=== PATIENT | male | born 1975 | race Two or more races ===

== ENCOUNTER 2017-12-04 21:46 | Inpatient (IN) | payer MEDICAID ==
[~2017-12-04] VITALS: Ht 162.6 cm; Wt 129.1 kg
[~2017-12-04 21:46] MED LIST: AMLO5TAB2 PO; CLON0.2T PO; DENIES HOME MEDS; HYDR25TA4 PO; LOSA50TA6 PO; METF-370 PO; METH-562 PO; PERCOT PO; POTA-165 PO; [UNRECOGNIZED DRUG - CODE] PO
[2017-12-04 22:46] LABS: Basophils # (auto) 0.1 uL; Basophils % (auto) 0.9 % (0.0-2.0); Eosinophils # (auto) 0.4 uL; Eosinophils % (auto) 4.5 % (0.0-7.0); Hematocrit 40.7 % (41.0-53.0); Hemoglobin 14.1 g/dL (13.5-17.5); Lymphocytes # (auto) 2.5 uL; Lymphocytes % (auto) 29.4 % (10.0-50.0); Mean Corpuscular Hemoglobin 29.3 pg (28.0-32.0); Mean Corpuscular Hgb Conc. 34.5 g/dL (32.0-36.0); Mean Corpuscular Volume 84.9 fL (80.0-100.0); Monocytes # (auto) 0.7 uL; Monocytes % (auto) 7.6 % (0.0-12.0); Neutrophils % (auto) 57.6 % (37.0-80.0); Platelet Count (auto) 225 10^3/uL (140-450); Red Blood Cells 4.79 10^6/uL (4.5-5.90); Red Cell Distribution Width 12.6 % (11.8-14.3); White Blood Cell 8.6 10^3/uL (4.4-10.8)
[2017-12-04 23:05] LABS: Albumin 3.5 g/dL (3.4-5.0); BUN/Creatinine Ratio 14.5; Bilirubin, Total 0.4 mg/dL (0.2-1.0); Calcium 8.6 mg/dL (8.5-10.1); Magnesium 2.2 mg/dL (1.6-2.6); Potassium 3.7 mmol/L (3.5-5.1); Total Protein 7.5 g/dL (6.4-8.2)
[2017-12-05] MEDS ORDERED: cloNIDine HCL 0.1 MG TAB PO ONE (05:00)
[2017-12-05] MEDS ORDERED: NITROGLYCERIN 0.4 MG SL TAB SL ONE (08:15)
[2017-12-05] MEDS ORDERED: LABETALOL HCL 5 MG/ML ML 20ML VIAL IV ONE (08:15)
[2017-12-05] MEDS ORDERED: ASPirin 325 MG TAB PO ONE (08:15)
[2017-12-05] MEDS ORDERED: ZOLPIDEM TARTRATE 5 MG TAB PO PRN (09:15)
[2017-12-05] MEDS ORDERED: MORPHINE SULF INJ 2 MG/ML SYRINGE 1ML IV PRN ×2 (09:15)
[2017-12-05] MEDS ORDERED: cloNIDine HCL 0.1 MG TAB PO PRN (09:15)
[2017-12-05] MEDS ORDERED: ACETAMINOPHEN 325 MG TAB PO PRN (09:15)
[2017-12-05] MEDS ORDERED: LORazepam 0.5 MG TAB PO PRN (09:15)
[2017-12-05] MEDS ORDERED: ALUM & MAG HYDROX-SIMETH LIQ(MAALOX) 30 ML PO ONE (09:15)
[2017-12-05] MEDS ORDERED: ONDANSETRON HCL 4 MG/2 ML VIAL IV PRN (09:15)
[2017-12-05] MEDS ORDERED: METHOCARBAMOL 500 MG TAB PO PRN (09:15)
[2017-12-05] MEDS ORDERED: NITROGLYCERIN 0.4 MG SL TAB SL PRN ×2 (09:15)
[2017-12-05 09:45] LABS: INR 0.95 (0.9-1.15); Prothrombin Time 10.3 sec (9.37-12.3)
[2017-12-05] MEDS: DOCUSATE SOD 100 MG CAP PO SCH (10:00)
[2017-12-05] MEDS ORDERED: ENALAPRIL MALEATE 2.5 MG TAB PO SCH (10:00)
[2017-12-05] MEDS: LOSARTAN POTASSIUM 50 MG TAB PO SCH (10:16)
[2017-12-05] MEDS: amLODIPine BESYLATE 5 MG TAB PO SCH (10:16)
[2017-12-05] MEDS: fentaNYL 100MCG/HR 100 MCG/HR PAT TD SCH (10:16)
[2017-12-05] MEDS: POTASSIUM CHL 20 Meq TABLET PO SCH (10:16)
[2017-12-05] MEDS: CLOPIDOGREL BISULFATE 75 MG TAB PO SCH (10:16)
[2017-12-05] MEDS: LORATADINE 10 MG TAB PO SCH (10:16)
[2017-12-05] MEDS: CARVEDILOL 3.125 MG TAB PO SCH ×2 (10:16→22:16)
[2017-12-05] MEDS: HCTZ 25 MG TAB PO SCH (10:17)
[2017-12-05 11:31] VITALS: BP 131/86
[2017-12-05 13:00] VITALS: BP 131/68
[2017-12-05] MEDS ORDERED: OPTISON 3ml Vial for INJ IV ONE (13:31)
[2017-12-05] MEDS: SODIUM CHLOR 0.9% PF (SALINE LOCK) 10ML VIAL IV SCH ×2 (15:28→22:15)
[2017-12-05 16:05] LABS: Urine Bacteria NONE SEEN /hpf (None Seen); Urine Blood Negative /uL (Negative); Urine Mucus FEW (None Seen); Urine Specific Gravity 1.018 (1.001-1.035); Urine WBC 8 /hpf (0 - 3)
[2017-12-05 17:00] VITALS: BP 130/81
[2017-12-05 22:00] VITALS: BP 159/90
[2017-12-05] MEDS: cloNIDine HCL 0.1 MG TAB PO SCH (22:15)
[2017-12-05] MEDS: ATORVASTATIN 20 MG TAB PO SCH (22:16)
[2017-12-06 05:00] VITALS: BP 146/69
[2017-12-06] MEDS: SODIUM CHLOR 0.9% PF (SALINE LOCK) 10ML VIAL IV SCH ×3 (05:06→22:11)
[2017-12-06 06:30] LABS: Basophils # (auto) 0 uL; Basophils % (auto) 0.3 % (0.0-2.0); Eosinophils # (auto) 0.4 uL; Hematocrit 38.8 % (41.0-53.0); Hemoglobin 13.6 g/dL (13.5-17.5); Lymphocytes # (auto) 3.2 uL; Lymphocytes % (auto) 36.2 % (10.0-50.0); Mean Corpuscular Hemoglobin 29.7 pg (28.0-32.0); Mean Corpuscular Volume 84.8 fL (80.0-100.0); Monocytes # (auto) 0.6 uL; Monocytes % (auto) 7.1 % (0.0-12.0); Neutrophils # (auto) 4.6 uL; Neutrophils % (auto) 51.4 % (37.0-80.0); Nucleated Red Blood Cells % 0.1 %; Platelet Count (auto) 201 10^3/uL (140-450); Red Blood Cells 4.58 10^6/uL (4.5-5.90); Red Cell Distribution Width 12.9 % (11.8-14.3); White Blood Cell 8.9 10^3/uL (4.4-10.8)
[2017-12-06 07:08] LABS: Albumin 3.3 g/dL (3.4-5.0); BUN/Creatinine Ratio 17.7; Bilirubin, Total 0.5 mg/dL (0.2-1.0); Calcium 8.7 mg/dL (8.5-10.1); Magnesium 2.5 mg/dL (1.6-2.6); Potassium 4.1 mmol/L (3.5-5.1); Total Protein 7.2 g/dL (6.4-8.2)
[2017-12-06] MEDS ORDERED: ADENOSINE 109 MG in GIVE UN-DILUTED 0 ML IV ONE (08:30)
[2017-12-06 09:00] VITALS: BP 126/93
[2017-12-06] MEDS: CARVEDILOL 3.125 MG TAB PO SCH ×2 (10:00→22:12)
[2017-12-06] MEDS: ASPirin 81 mg TAB PO SCH (10:02)
[2017-12-06] MEDS: LORATADINE 10 MG TAB PO SCH (10:02)
[2017-12-06] MEDS: DOCUSATE SOD 100 MG CAP PO SCH (10:02)
[2017-12-06] MEDS: POTASSIUM CHL 20 Meq TABLET PO SCH (10:03)
[2017-12-06] MEDS: LOSARTAN POTASSIUM 50 MG TAB PO SCH (10:03)
[2017-12-06] MEDS: HCTZ 25 MG TAB PO SCH (10:03)
[2017-12-06] MEDS: CLOPIDOGREL BISULFATE 75 MG TAB PO SCH (10:04)
[2017-12-06] MEDS: amLODIPine BESYLATE 5 MG TAB PO SCH (10:04)
[2017-12-06 13:00] VITALS: BP 155/98
[2017-12-06 17:00] VITALS: BP 146/86
[2017-12-06 22:09] VITALS: BP 153/95
[2017-12-06] MEDS: cloNIDine HCL 0.1 MG TAB PO SCH (22:11)
[2017-12-06] MEDS: ATORVASTATIN 20 MG TAB PO SCH (22:12)
[2017-12-07 04:55] VITALS: BP 114/71
[2017-12-07] MEDS: SODIUM CHLOR 0.9% PF (SALINE LOCK) 10ML VIAL IV SCH ×3 (05:39→22:14)
[2017-12-07 07:33] LABS: Basophils # (auto) 0 uL; Basophils % (auto) 0.5 % (0.0-2.0); Eosinophils # (auto) 0.5 uL; Eosinophils % (auto) 5.7 % (0.0-7.0); Hematocrit 39.7 % (41.0-53.0); Hemoglobin 13.8 g/dL (13.5-17.5); Lymphocytes # (auto) 3.2 uL; Lymphocytes % (auto) 37.9 % (10.0-50.0); Mean Corpuscular Hemoglobin 29.5 pg (28.0-32.0); Mean Corpuscular Hgb Conc. 34.8 g/dL (32.0-36.0); Mean Corpuscular Volume 84.6 fL (80.0-100.0); Monocytes # (auto) 0.7 uL; Monocytes % (auto) 7.8 % (0.0-12.0); Neutrophils # (auto) 4.1 uL; Neutrophils % (auto) 48.1 % (37.0-80.0); Nucleated Red Blood Cells % 0.1 %; Platelet Count (auto) 205 10^3/uL (140-450); Red Cell Distribution Width 12.8 % (11.8-14.3); White Blood Cell 8.4 10^3/uL (4.4-10.8)
[2017-12-07 07:36] LABS: INR 0.92 (0.9-1.15); Partial Thromboplastin Time 25.5 sec (22.64-33.71)
[2017-12-07 08:06] LABS: Albumin 3.3 g/dL (3.4-5.0); BUN/Creatinine Ratio 16.1; Bilirubin, Total 0.6 mg/dL (0.2-1.0); Calcium 8.6 mg/dL (8.5-10.1); Potassium 4.1 mmol/L (3.5-5.1); Total Protein 7.2 g/dL (6.4-8.2)
[2017-12-07 09:00] VITALS: BP 134/80
[2017-12-07] MEDS: LOSARTAN POTASSIUM 50 MG TAB PO SCH (10:00)
[2017-12-07] MEDS: LORATADINE 10 MG TAB PO SCH (10:00)
[2017-12-07] MEDS: amLODIPine BESYLATE 5 MG TAB PO SCH (10:00)
[2017-12-07] MEDS: HCTZ 25 MG TAB PO SCH (10:00)
[2017-12-07] MEDS: POTASSIUM CHL 20 Meq TABLET PO SCH (10:00)
[2017-12-07] MEDS: CARVEDILOL 3.125 MG TAB PO SCH ×2 (10:00→22:14)
[2017-12-07] MEDS: DOCUSATE SOD 100 MG CAP PO SCH (10:00)
[2017-12-07] MEDS: ASPirin 81 mg TAB PO SCH (10:00)
[2017-12-07] MEDS: CLOPIDOGREL BISULFATE 75 MG TAB PO SCH (10:00)
[2017-12-07] MEDS ORDERED: ANGIOMAX 250 MG VIAL IV ONE (12:48)
[2017-12-07] MEDS ORDERED: MIDAZOLAM HCL 1MG/1ML-2 ML VIAL ONE (12:49)
[2017-12-07] MEDS ORDERED: fentaNYL CITRATE 100 MCG/2 ML VL ONE (12:49)
[2017-12-07] MEDS ORDERED: IODIXANOL 320MG/ML 100ML BTL IV ONE (12:53)
[2017-12-07] MEDS ORDERED: LIDOCAINE 2%HCL (LOCAL ANESTH.) INJ 20ML MDV ONE (12:53)
[2017-12-07] MEDS ORDERED: VERAPAMIL 2.5MG/ML INJ 2ML VIAL IV ONE (12:55)
[2017-12-07 13:00] VITALS: BP 154/84
[2017-12-07] MEDS ORDERED: HEPARIN SODIUM (PORCINE) 5000 UNITS/ML 1ML VIAL ONE (13:46)
[2017-12-07 22:00] VITALS: BP 143/82
[2017-12-07] MEDS: ATORVASTATIN 20 MG TAB PO SCH (22:14)
[2017-12-07] MEDS: cloNIDine HCL 0.1 MG TAB PO SCH (22:14)
[2017-12-08 05:00] VITALS: BP 140/79
[2017-12-08] MEDS: SODIUM CHLOR 0.9% PF (SALINE LOCK) 10ML VIAL IV SCH ×2 (05:50→14:00)
[2017-12-08 06:17] LABS: BUN/Creatinine Ratio 17.4; Calcium 8.7 mg/dL (8.5-10.1); Potassium 3.8 mmol/L (3.5-5.1)
[2017-12-08 08:54] VITALS: BP 145/64
[2017-12-08] MEDS: CARVEDILOL 3.125 MG TAB PO SCH (10:00)
[2017-12-08] MEDS: fentaNYL 100MCG/HR 100 MCG/HR PAT TD SCH (10:50)
[2017-12-08] MEDS: CLOPIDOGREL BISULFATE 75 MG TAB PO SCH (10:51)
[2017-12-08] MEDS: amLODIPine BESYLATE 5 MG TAB PO SCH (10:51)
[2017-12-08] MEDS: POTASSIUM CHL 20 Meq TABLET PO SCH (10:51)
[2017-12-08] MEDS: ASPirin 81 mg TAB PO SCH (10:51)
[2017-12-08] MEDS: DOCUSATE SOD 100 MG CAP PO SCH (10:51)
[2017-12-08] MEDS: LOSARTAN POTASSIUM 50 MG TAB PO SCH (10:51)
[2017-12-08] MEDS: HCTZ 25 MG TAB PO SCH (10:52)
[2017-12-08] MEDS: LORATADINE 10 MG TAB PO SCH (10:52)
[2017-12-08 11:27] VITALS: BP 123/79
[2017-12-08 14:06] VITALS: BP 145/64
== END 2017-12-08 15:00 | disposition home or self-care (01) | DRG 191 ==
LOC: ER 21:46 → TELE 21:47 → ER 12-05 02:16 → TELE-WESTW 12-05 10:34
PROVIDERS: ADMIT Internal Medicine; ATTEND Internal Medicine
PROC: 4A023N7 Measurement of Cardiac Sampling and Pressure, Left Heart, Percutaneous Approach (ICD-10-PCS; principal; 2017-12-07)
PROC: B2111ZZ Fluoroscopy of Multiple Coronary Arteries using Low Osmolar Contrast (ICD-10-PCS; 2017-12-07)
DX: I20.0 Unstable angina (principal); E11.22 Type 2 diabetes mellitus with diabetic chronic kidney disease; E11.65 Type 2 diabetes mellitus with hyperglycemia; E44.1 Mild protein-calorie malnutrition; E66.01 Morbid (severe) obesity due to excess calories; G47.30 Sleep apnea, unspecified; N18.2 Chronic kidney disease, stage 2 (mild); I12.9 Hypertensive chronic kidney disease with stage 1 through stage 4 chronic kidney disease, or unspecified chronic kidney disease; G89.29 Other chronic pain; J45.909 Unspecified asthma, uncomplicated; Z82.49 Family history of ischemic heart disease and other diseases of the circulatory system; Z83.3 Family history of diabetes mellitus; Z68.42 Body mass index [BMI] 45.0-49.9, adult; Z90.49 Acquired absence of other specified parts of digestive tract
CPT/HCPCS: 36415; 71045; 80048; 80053; 80061; 81001; 83036; 83735; 83880; 84443; 84484; 85025; 85610; 85730; 93005; 93306; 93458; 96374; 99152; J0153; J2250; Q9956; Q9967

== ENCOUNTER 2020-11-10 17:44 | Emergency (ER) | payer MEDICAID ==
[~2020-11-10] VITALS: Ht 167.6 cm; Wt 136.1 kg
[~2020-11-10 17:44] MED LIST changes: +AMLO-489 PO; -AMLO5TAB2 PO; -CLON0.2T PO; -DENIES HOME MEDS; +GLIP10TA9 PO; -LOSA50TA6 PO; -PERCOT PO; +PIOG15TA25 PO; -POTA-165 PO; -[UNRECOGNIZED DRUG - CODE] PO
[2020-11-10 19:08] LABS: Basophils # (auto) 0 10 ^3/uL (0-0.2); Basophils % (auto) 0.1 % (0.0-2.0); Eosinophils # (auto) 0 10 ^3/uL (0-0.8); Hematocrit 39.5 % (41.0-53.0); Hemoglobin 13.7 g/dL (13.5-17.5); Lymphocytes # (auto) 0.7 10 ^3/uL (0.4-5.4); Lymphocytes % (auto) 11.7 % (10.0-50.0); Mean Corpuscular Hemoglobin 29.3 pg (28.0-32.0); Mean Corpuscular Hgb Conc. 34.7 g/dL (32.0-36.0); Mean Corpuscular Volume 84.6 fL (80.0-100.0); Monocytes # (auto) 0.2 10 ^3/uL (0-1.3); Monocytes % (auto) 3.4 % (0.0-12.0); Neutrophils % (auto) 84.8 % (37.0-80.0); Nucleated Red Blood Cells % 0.8 %; Red Blood Cells 4.67 10^6/uL (4.5-5.90); Red Cell Distribution Width 12.7 % (11.8-14.3); White Blood Cell 5.9 10^3/uL (4.4-10.8)
[2020-11-10 19:22] LABS: Albumin 3.1 g/dL (3.4-5.0); Calcium 8.4 mg/dL (8.5-10.1); Magnesium 1.8 mg/dL (1.6-2.6); Potassium 3.8 mmol/L (3.5-5.1)
[2020-11-10 19:31] LABS: BUN/Creatinine Ratio 16.2; Bilirubin, Total 0.6 mg/dL (0.2-1.0); CRP High Sensitivity 7.18 mg/dL (< 0.3); Total Protein 8.2 g/dL (6.4-8.2)
[2020-11-10 21:12] VITALS: BP 137/71
== END 2020-11-10 21:16 | disposition home or self-care (01) ==
LOC: ER 17:45
DX: U07.1 COVID-19 (principal); J12.89 Other viral pneumonia; J45.909 Unspecified asthma, uncomplicated; E11.9 Type 2 diabetes mellitus without complications; I10 Essential (primary) hypertension; F17.200 Nicotine dependence, unspecified, uncomplicated; Z90.49 Acquired absence of other specified parts of digestive tract
CPT/HCPCS: 36415; 71045; 80053; 82728; 83605; 83615; 83735; 84443; 85025; 85379; 86141; 87040; 87426; 93005; 99285; J7030

== ENCOUNTER 2023-03-02 22:16 | Inpatient (IN) | payer MEDICAID ==
[~2023-03-02] VITALS: Ht 167.6 cm; Wt 141.0 kg
[2023-03-02 22:28] LABS: Basophils # (auto) 0.1 10 ^3/uL (0-0.2); Basophils % (auto) 0.7 % (0.0-2.0); Eosinophils # (auto) 0.2 10 ^3/uL (0-0.8); Eosinophils % (auto) 1.8 % (0.0-7.0); Hematocrit 45.2 % (41.0-53.0); Hemoglobin 15.5 g/dL (13.5-17.5); Lymphocytes # (auto) 3.5 10 ^3/uL (0.4-5.4); Lymphocytes % (auto) 27.9 % (10.0-50.0); Mean Corpuscular Hemoglobin 29.1 pg (28.0-32.0); Mean Corpuscular Hgb Conc. 34.3 g/dL (32.0-36.0); Mean Corpuscular Volume 84.7 fL (80.0-100.0); Monocytes % (auto) 8.1 % (0.0-12.0); Neutrophils # (auto) 7.8 10 ^3/uL (1.6-8.6); Neutrophils % (auto) 61.5 % (37.0-80.0); Nucleated Red Blood Cells % 0.1 %; Red Blood Cells 5.34 10^6/uL (4.5-5.90); Red Cell Distribution Width 13.2 % (11.8-14.3); White Blood Cell 12.7 10^3/uL (4.4-10.8)
[2023-03-02] MEDS ORDERED: SODIUM CHLORIDE 0.9% 500 ML IV ONE (22:30)
[2023-03-02 22:41] LABS: INR 0.97 (0.9-1.15); Partial Thromboplastin Time 25.9 sec (24.6-33.4)
[2023-03-02 22:47] LABS: Albumin 3.3 g/dL (3.4-5.0); Calcium 8.9 mg/dL (8.5-10.1); Magnesium 2.1 mg/dL (1.6-2.6); Potassium 3.9 mmol/L (3.5-5.1)
[2023-03-02 22:51] LABS: BUN/Creatinine Ratio 14.4 (10.0-20.0); Bilirubin, Total 0.4 mg/dL (0.2-1.0); Total Protein 7.2 g/dL (6.4-8.2)
[2023-03-02] MEDS ORDERED: dilTIAZem 25 MG/5 ML VIAL IV ONE ×2 (23:15→23:45)
[2023-03-02] MEDS ORDERED: METOPROLOL TARTRATE 1MG/1ML-5ML VIAL IV ONE ×2 (23:22→23:25)
[2023-03-02] MEDS ORDERED: AMIODARONE HCL (50 MG/ ML) 3 ML VIAL IV ONE (23:50)
[2023-03-03] MEDS ORDERED: AMIODARONE HCL 150 MG in D5W 5% 100 ML IV ONE ×2
[2023-03-03] MEDS ORDERED: dilTIAZem 125mg/125ml BAG KIT 125 ML IV ONE ×2 (00:30)
[2023-03-03] MEDS ORDERED: NITROGLYCERIN 0.4 MG SL TAB SL PRN (00:45)
[2023-03-03] MEDS ORDERED: METOPROLOL SUCCINATE XL 50 MG TAB PO ONE (00:45)
[2023-03-03] MEDS ORDERED: MORPHINE SULFATE INJ 2 MG/ml SYRG IV PRN (00:45)
[2023-03-03] MEDS ORDERED: dilTIAZem 25 MG/5 ML VIAL IV ONE ×2 (04:25→04:27)
[2023-03-03] MEDS ORDERED: dilTIAZem 125mg/125ml BAG KIT 125 ML IV SCH (04:45)
[2023-03-03] MEDS: AMIODARONE HCL 200 MG TAB PO SCH ×2 (08:34→22:40)
[2023-03-03] MEDS: METOPROLOL SUCCINATE XL 50 MG TAB PO SCH ×2 (08:34→22:41)
[2023-03-03] MEDS: RIVAROXABAN 20 MG TAB PO SCH (08:35)
[2023-03-03] MEDS ORDERED: DEXTROSE (50%) 50ML SYRG IV PRN (11:00)
[2023-03-03] MEDS: InsuLIN REG 1unit/0.01ml Soln (100units/ml) SC SCH ×2 (11:30→18:14)
[2023-03-03] MEDS: ACCU-CHEK COMFORT CURVE STRIP VI SCH ×3 (14:04→22:00)
[2023-03-03 22:00] VITALS: BP 178/101
[2023-03-03] MEDS ORDERED: InsuLIN REG 1unit/0.01ml Soln (100units/ml) SC SCH (22:00)
[2023-03-03] MEDS: metFORMIN HYDROCHLORIDE 500 MG TAB PO SCH (22:40)
[2023-03-03 23:11] VITALS: BP 178/101
[2023-03-04 05:00] VITALS: BP 138/85
[2023-03-04] MEDS: ACCU-CHEK COMFORT CURVE STRIP VI SCH ×2 (06:06→11:30)
[2023-03-04] MEDS: InsuLIN REG 1unit/0.01ml Soln (100units/ml) SC SCH ×2 (06:11→11:30)
[2023-03-04] MEDS ORDERED: METO25TA5 PO (07:00)
[2023-03-04] MEDS ORDERED: LISI-285 PO (07:00)
[2023-03-04 09:00] VITALS: BP 139/85
[2023-03-04] MEDS: metFORMIN HYDROCHLORIDE 500 MG TAB PO SCH (10:00)
[2023-03-04] MEDS: METOPROLOL SUCCINATE XL 50 MG TAB PO SCH (10:00)
[2023-03-04] MEDS: AMIODARONE HCL 200 MG TAB PO SCH (10:00)
[2023-03-04] MEDS: RIVAROXABAN 20 MG TAB PO SCH (10:00)
[2023-03-04 15:44] VITALS: BP 139/85
[2023-03-04] MEDS ORDERED: fentaNYL 50MCG/HR 50 MCG/HR PAT TD SCH (22:00)
== END 2023-03-04 17:00 | disposition home or self-care (01) | DRG 201 ==
LOC: ER 22:16 → TELE 03-03 00:48 → TELE-EAST 03-03 20:50
PROVIDERS: ADMIT Internal Medicine Cardiovascular Disease; ATTEND Internal Medicine Cardiovascular Disease
DX: I48.91 Unspecified atrial fibrillation (principal); I11.0 Hypertensive heart disease with heart failure; I50.22 Chronic systolic (congestive) heart failure; Z68.43 Body mass index [BMI] 50.0-59.9, adult; E11.9 Type 2 diabetes mellitus without complications; F17.210 Nicotine dependence, cigarettes, uncomplicated; E66.9 Obesity, unspecified; E78.5 Hyperlipidemia, unspecified; G89.29 Other chronic pain; J45.909 Unspecified asthma, uncomplicated; Z90.49 Acquired absence of other specified parts of digestive tract
CPT/HCPCS: 36415; 71045; 80053; 82962; 83735; 83880; 84484; 85025; 85610; 85730; 87081; 93005; 93306; 96361; 96365; 96375; 99291; G0378; J1815; J7060

== ENCOUNTER 2023-10-23 16:44 | Emergency (ER) | payer MEDICAID ==
[~2023-10-23] VITALS: Ht 167.6 cm; Wt 132.7 kg
[~2023-10-23 16:44] MED LIST changes: -AMLO-489 PO; +AMLO1TAB22 PO; +LISI-285 PO; +METO25TA5 PO
[2023-10-23 18:42] VITALS: BP 173/97; TEMP 97.8
[2023-10-23 20:19] LABS: Basophils # (auto) 0 10 ^3/uL (0-0.2); Basophils % (auto) 0.5 % (0.0-2.0); Hematocrit 51.6 % (41.0-53.0); Lymphocytes # (auto) 2.5 10 ^3/uL (0.4-5.4); Monocytes # (auto) 0.7 10 ^3/uL (0-1.3); Neutrophils # (auto) 3.3 10 ^3/uL (1.6-8.6); White Blood Cell 6.7 10^3/uL (4.4-10.8)
[2023-10-23 20:21] LABS: Eosinophils # (auto) 0 10 ^3/uL (0-0.8); Eosinophils % (auto) 0.6 % (0.0-7.0); Hemoglobin 17.9 g/dL (13.5-17.5); Lymphocytes % (auto) 37.8 % (10.0-50.0); Mean Corpuscular Hemoglobin 29.7 pg (28.0-32.0); Mean Corpuscular Hgb Conc. 34.7 g/dL (32.0-36.0); Mean Corpuscular Volume 85.7 fL (80.0-100.0); Monocytes % (auto) 11.1 % (0.0-12.0); Nucleated Red Blood Cells % 0.4 %; Red Blood Cells 6.02 10^6/uL (4.5-5.90); Red Cell Distribution Width 13.1 % (11.8-14.3)
[2023-10-23 20:40] LABS: Alanine Aminotransferase 46 U/L (7-40); Albumin 4.3 g/dL (3.2-4.8); Alkaline Phosphatase 58 U/L (46-116); Anion Gap 9 (5-15); Aspartate Aminotransferase 49 U/L (13-40); BUN/Creatinine Ratio 15.6 (10.0-20.0); Bilirubin, Total 0.7 mg/dL (0.2-1.0); Blood Urea Nitrogen 22 mg/dL (9-23); Calcium 8.9 mg/dL (8.7-10.4); Carbon Dioxide 27 mmol/L (20-30); Chloride 104 mmol/L (98-107); Glucose 134 mg/dL (74-106); Potassium 3.8 mmol/L (3.5-5.1); Sodium 140 mmol/L (136-145); Total Protein 7.2 g/dL (5.7-8.2)
[2023-10-23] MEDS ORDERED: IPRATROPIUM BROM 0.5 MG/2.5ML INH SOL ONE (21:21)
[2023-10-23] MEDS ORDERED: ALBUTEROL SULF 2.5 MG/0.5ML(0.5%) NEB SOLN ONE (21:21)
[2023-10-23] MEDS ORDERED: DexAMETHasone SOD PHOS 10MG/1ML VIAL INJ IM ONE (21:30)
[2023-10-23] MEDS ORDERED: cefTRIAXone SOD 1,000 MG VL IM ONE (21:30)
[2023-10-23] MEDS ORDERED: IPRATROPIUM BROM 0.5 MG/2.5ML INH SOL NEB ONE (21:30)
[2023-10-23] MEDS ORDERED: ALBUTEROL SULF 2.5 MG/0.5ML(0.5%) NEB SOLN NEB ONE ×2 (21:30→22:15)
[2023-10-23] MEDS ORDERED: ALBUAER3 IN (22:09)
[2023-10-23] MEDS ORDERED: PRED20TA2 PO (22:09)
[2023-10-23] MEDS ORDERED: AUG875T PO (22:09)
[2023-10-23] MEDS ORDERED: BENZ200C64 PO (22:09)
[2023-10-23] MEDS ORDERED: guaiFENesin-CODEINE Liq 5 ML UD PO ONE (22:15)
[2023-10-23 22:16] VITALS: PULSE 90
[2023-10-23 22:32] VITALS: RESP 20; O2SAT 95
== END 2023-10-23 22:54 | disposition home or self-care (01) ==
LOC: ER 16:44
DX: S22.009A Unspecified fracture of unspecified thoracic vertebra, initial encounter for closed fracture (principal); J18.9 Pneumonia, unspecified organism; J45.901 Unspecified asthma with (acute) exacerbation; E11.9 Type 2 diabetes mellitus without complications; I10 Essential (primary) hypertension; Z90.49 Acquired absence of other specified parts of digestive tract; X58.XXXA Exposure to other specified factors, initial encounter; Y93.89 Activity, other specified; Y92.89 Other specified places as the place of occurrence of the external cause; Y99.8 Other external cause status
CPT/HCPCS: 36415; 71046; 80053; 82962; 83880; 84484; 85025; 93005; 94640; 96372; 99285; J0696; J1100; J7644

== ENCOUNTER 2023-12-06 09:39 | Emergency (ER) | payer MEDICAID ==
[~2023-12-06] VITALS: Ht 167.6 cm; Wt 133.5 kg
[~2023-12-06 09:39] MED LIST changes: +ALBUAER3 IN; +AUG875T PO; +BENZ200C64 PO; +PRED20TA2 PO
[2023-12-06 11:43] VITALS: BP 148/92; PULSE 63; RESP 18; TEMP 97.9; O2SAT 96
== END 2023-12-06 14:07 | disposition home or self-care (01) ==
LOC: ER 09:39
DX: R07.81 Pleurodynia (principal); I10 Essential (primary) hypertension; E11.9 Type 2 diabetes mellitus without complications; J45.909 Unspecified asthma, uncomplicated; F17.210 Nicotine dependence, cigarettes, uncomplicated; Z90.49 Acquired absence of other specified parts of digestive tract
CPT/HCPCS: 71250; 74176

== ENCOUNTER 2024-07-09 17:08 | Inpatient (IN) | payer MEDICAID ==
[~2024-07-09] VITALS: Ht 167.6 cm; Wt 135.6 kg
[2024-07-09 21:02] LABS: Basophils # (auto) 0.1 10 ^3/uL (0-0.2); Basophils % (auto) 0.6 % (0.0-2.0); Eosinophils # (auto) 0 10 ^3/uL (0-0.8); Eosinophils % (auto) 0.1 % (0.0-7.0); Hematocrit 49.5 % (41.0-53.0); Lymphocytes # (auto) 1.8 10 ^3/uL (0.4-5.4); Mean Corpuscular Hemoglobin 29.8 pg (28.0-32.0); Mean Corpuscular Hgb Conc. 34.3 g/dL (32.0-36.0); Monocytes # (auto) 0.4 10 ^3/uL (0-1.3); Monocytes % (auto) 3.2 % (0.0-12.0); Neutrophils # (auto) 9.6 10 ^3/uL (1.6-8.6); Neutrophils % (auto) 81.1 % (37.0-80.0); Platelet Count (auto) 223 10^3/uL (140-450); Red Blood Cells 5.69 10^6/uL (4.5-5.90); Red Cell Distribution Width 13.3 % (11.8-14.3); White Blood Cell 11.9 10^3/uL (4.4-10.8)
[2024-07-09 21:07] LABS: Chloride 108 mmol/L (98-107); Sodium 139 mmol/L (136-145)
[2024-07-09 21:08] LABS: Anion Gap 6 (5-15); Carbon Dioxide 25 mmol/L (20-30)
[2024-07-09 21:13] LABS: BUN/Creatinine Ratio 14.4 (10.0-20.0); Blood Urea Nitrogen 20 mg/dL (9-23); Glucose 164 mg/dL (74-106)
[2024-07-10] VITALS (8 sets, daily range): BP systolic 145–170; BP diastolic 78–92; PULSE 65–79; RESP 18–20; TEMP 97.7–98.2; O2SAT 92–98
[2024-07-10] MEDS ORDERED: NITROGLYCERIN 0.4 MG SL TAB SL PRN (00:45)
[2024-07-10] MEDS ORDERED: MORPHINE SULFATE INJ 2 MG/ml SYRG IV PRN (00:45)
[2024-07-10] MEDS: ONDANSETRON HCL 4 MG/2 ML VIAL IV ONE (02:01)
[2024-07-10] MEDS: AZITHROMYCIN 250 MG TAB PO ONE (02:01)
[2024-07-10] MEDS: FAMOTIDINE (10MG/ML) 2ML VL IV ONE (02:01)
[2024-07-10] MEDS: SODIUM CHLORIDE 0.9% 1,000 ML IV ONE (02:01)
[2024-07-10] MEDS: cefTRIAXone 1GM/50ML D5W 50 ML IV ONE (02:01)
[2024-07-10] MEDS: hydrALAZINE HCL 20 MG/ML VL IV PRN (04:53)
[2024-07-10] MEDS: PIPERACILLIN-TAZOB 3.375GM 100 ML IV SCH ×2 (06:14→23:00)
[2024-07-10 09:27] LABS: Rapid Influenza A Negative (Negative); Rapid Influenza B Negative (Negative)
[2024-07-10 09:28] LABS: COVID19 ANTIGEN SOFIA FIA NEGATIVE (NEGATIVE)
[2024-07-10] MEDS ORDERED: HYDR-4798 PO (10:16)
[2024-07-10] MEDS: HYDROcodone-ACET 5/325MG TAB PO PRN (12:24)
[2024-07-10] MEDS ORDERED: DEXTROSE (50%) 50ML SYRG IV PRN (15:00)
[2024-07-10] MEDS ORDERED: IPRATROPIUM BROM 0.5 MG/2.5ML INH SOL NEB PRN (15:00)
[2024-07-10] MEDS: ACCU-CHEK COMFORT CURVE STRIP VI SCH (16:33)
[2024-07-10] MEDS: InsuLIN REG 1unit/0.01ml Soln (100units/ml) SC SCH (16:33)
[2024-07-10] MEDS: metFORMIN HYDROCHLORIDE 500 MG TAB PO SCH (17:12)
[2024-07-10] MEDS: glipiZIDE 5 MG TAB PO SCH (17:12)
[2024-07-10] MEDS: IBUPROFEN 800 MG TAB PO PRN (17:12)
[2024-07-10 19:41] LABS: Urine Bacteria None Seen /hpf (None Seen)
[2024-07-10 20:08] LABS: Urine Blood Negative /uL (Negative); Urine Clarity Turbid (Clear); Urine Color Yellow (Yellow); Urine Mucus FEW (None Seen); Urine Protein, UAD 3+ (Negative); Urine Specific Gravity 1.035 (1.001-1.035); Urine Urobilinogen Normal (Negative); Urine WBC 3 /hpf (0 - 3)
[2024-07-10] MEDS: amLODIPine BESYLATE 5 MG TAB PO SCH (23:01)
[2024-07-11] VITALS (13 sets, daily range): BP systolic 125–165; BP diastolic 50–93; PULSE 72–90; RESP 17–24; TEMP 97.4–98.6; O2SAT 92–99
[2024-07-11] MEDS ORDERED: METO-289 PO (00:15)
[2024-07-11] MEDS ORDERED: DOXA1TAB28 PO (00:15)
[2024-07-11] MEDS ORDERED: AMIO200T13 PO (00:15)
[2024-07-11] MEDS ORDERED: LISI-287 PO (00:15)
[2024-07-11] MEDS ORDERED: RIV20T PO (00:15)
[2024-07-11] MEDS: ENOXAPARIN SOD 100 MG/1 ML SYRINGE SC SCH (02:22)
[2024-07-11] MEDS: MECLIZINE HCL 25 MG TAB PO PRN (03:45)
[2024-07-11 06:28] LABS: Calcium 9.2 mg/dL (8.7-10.4); Chloride 108 mmol/L (98-107); Potassium 3.4 mmol/L (3.5-5.1); Sodium 141 mmol/L (136-145)
[2024-07-11 06:29] LABS: Anion Gap 9 (5-15); Carbon Dioxide 24 mmol/L (20-30)
[2024-07-11 06:34] LABS: BUN/Creatinine Ratio 14.3 (10.0-20.0); Blood Urea Nitrogen 19 mg/dL (9-23); Glucose 106 mg/dL (74-106); Triglycerides 77 mg/dL (< 150)
[2024-07-11 06:35] LABS: LDL Cholesterol 69 mg/dL (< 100)
[2024-07-11 06:36] LABS: Cholesterol 133 mg/dL (< 200); HDL Cholesterol 44 mg/dL (40-59)
[2024-07-11] MEDS: METOPROLOL SUCCINATE XL 50 MG TAB PO SCH (09:59)
[2024-07-11] MEDS: HYDROcodone-ACET 10/325MG TAB PO PRN (13:13)
[2024-07-11] MEDS: ONDANSETRON HCL 4 MG/2 ML VIAL IV PRN (13:14)
[2024-07-12] VITALS (9 sets, daily range): BP systolic 108–157; BP diastolic 59–96; PULSE 63–78; RESP 16–19; TEMP 98–98.9; O2SAT 92–96
[2024-07-12 11:58] LABS: Chloride 109 mmol/L (98-107); Potassium 3.6 mmol/L (3.5-5.1); Sodium 139 mmol/L (136-145)
[2024-07-12 11:59] LABS: Anion Gap 3 (5-15); Carbon Dioxide 27 mmol/L (20-30)
[2024-07-12 12:04] LABS: BUN/Creatinine Ratio 9.8 (10.0-20.0); Blood Urea Nitrogen 13 mg/dL (9-23); Glucose 115 mg/dL (74-106)
[2024-07-12] MEDS: APIXABAN 5 MG TAB PO SCH (21:46)
[2024-07-13] VITALS (8 sets, daily range): BP systolic 103–141; BP diastolic 56–85; PULSE 62–73; RESP 16–18; TEMP 36.8; O2SAT 95–99
[2024-07-13 06:17] LABS: Basophils # (auto) 0 10 ^3/uL (0-0.2); Basophils % (auto) 0.4 % (0.0-2.0); Eosinophils # (auto) 0.3 10 ^3/uL (0-0.8); Eosinophils % (auto) 2.8 % (0.0-7.0); Hematocrit 46.5 % (41.0-53.0); Hemoglobin 16.2 g/dL (13.5-17.5); Lymphocytes # (auto) 2.3 10 ^3/uL (0.4-5.4); Lymphocytes % (auto) 24.7 % (10.0-50.0); Mean Corpuscular Hemoglobin 30.8 pg (28.0-32.0); Mean Corpuscular Hgb Conc. 34.9 g/dL (32.0-36.0); Mean Corpuscular Volume 88.1 fL (80.0-100.0); Monocytes # (auto) 0.7 10 ^3/uL (0-1.3); Monocytes % (auto) 7.4 % (0.0-12.0); Neutrophils # (auto) 5.9 10 ^3/uL (1.6-8.6); Neutrophils % (auto) 64.7 % (37.0-80.0); Nucleated Red Blood Cells % 0.1 %; Platelet Count (auto) 217 10^3/uL (140-450); Red Blood Cells 5.28 10^6/uL (4.5-5.90); Red Cell Distribution Width 13.3 % (11.8-14.3); White Blood Cell 9.2 10^3/uL (4.4-10.8)
[2024-07-13 06:25] LABS: Chloride 109 mmol/L (98-107); Potassium 3.6 mmol/L (3.5-5.1); Sodium 141 mmol/L (136-145)
[2024-07-13 06:26] LABS: Anion Gap 5 (5-15); Carbon Dioxide 27 mmol/L (20-30)
[2024-07-13 06:27] LABS: Calcium 9.2 mg/dL (8.7-10.4)
[2024-07-13 06:31] LABS: BUN/Creatinine Ratio 10.5 (10.0-20.0); Blood Urea Nitrogen 16 mg/dL (9-23); Glucose 88 mg/dL (74-106)
[2024-07-13] MEDS ORDERED: MECL-90 PO (17:58)
[2024-07-13] MEDS ORDERED: APIX5TAB PO (17:58)
[2024-07-13] MEDS ORDERED: DOXY100C79 PO (18:00)
[2024-07-13] MEDS ORDERED: SCOP1DIS TD (18:15)
[2024-07-13] MEDS ORDERED: ZOFR4T PO (18:15)
== END 2024-07-13 19:05 | disposition home or self-care (01) | DRG 137 ==
LOC: ER 17:08 → TELE-E-ADS 07-10 00:45 → OVERFLOW 07-10 00:45 → EAST 07-10 20:34 → TELE-E-ADS 07-11 01:02
PROVIDERS: ADMIT Nurse Practitioner; ATTEND Nurse Practitioner
DX: J15.69 Pneumonia due to other Gram-negative bacteria (principal); N17.9 Acute kidney failure, unspecified; E66.01 Morbid (severe) obesity due to excess calories; Z20.822 Contact with and (suspected) exposure to COVID-19; F17.210 Nicotine dependence, cigarettes, uncomplicated; I48.0 Paroxysmal atrial fibrillation; Z90.49 Acquired absence of other specified parts of digestive tract; Z82.49 Family history of ischemic heart disease and other diseases of the circulatory system; Z68.42 Body mass index [BMI] 45.0-49.9, adult; Z79.899 Other long term (current) drug therapy; Z79.84 Long term (current) use of oral hypoglycemic drugs
CPT/HCPCS: 36415; 70450; 70551; 71045; 71250; 80048; 80061; 81001; 82962; 83036; 84443; 84484; 85025; 85379; 87426; 87804; 93005; 93306; G0378; J1815; J2405; J2543; J3490

== ENCOUNTER 2025-08-12 02:55 | Emergency (ER) | payer MEDICAID ==
[~2025-08-12 02:55] MED LIST changes: +AMIO200T13 PO; +APIX5TAB PO; -AUG875T PO; +DOXA1TAB28 PO; +DOXY100C79 PO; -HYDR25TA4 PO; -LISI-285 PO; +LISI-287 PO; +MECL-90 PO; -METH-562 PO; +METO-289 PO; -METO25TA5 PO; -PIOG15TA25 PO; -PRED20TA2 PO; +RIV20T PO; +SCOP1DIS TD; +ZOFR4T PO
[2025-08-12 03:02] VITALS: PULSE 85
--- NOTE | 2025-08-22 07:47 | ECG ---
[facility] Test Date: 2025-08-12 Test Time: 03:02:25 Pat Name: FELI NIELSEN Department: Room: Gender: [employer]or: : 1975 Requested By: CASTRO MORRISON Order Number: [id number] Reading MD: Johnson Oreilly Measurements Intervals [place] Rate: 85 P: 43 W[place]: 134 QRS: 60 QRSD: 103 T: 190 QT: 383 QTc: 456 Interpretive Statements Sinus rhythm Abnormal T, consider ischemia, diffuse leads Electronically Signed On 08-24-2025 17:51:22 PDT by Johnson Oreilly Please click the below link to view image of tracing.
== END 2025-08-12 03:24 | disposition left against medical advice (07) ==
LOC: ER 02:55
DX: R07.89 Other chest pain (principal); Z53.21 Procedure and treatment not carried out due to patient leaving prior to being seen by health care provider
CPT/HCPCS: 93005